=== PATIENT | female | born 1990 | race Caucasian/White ===

== ENCOUNTER 2020-12-30 00:28 | Emergency (ER) | payer MEDICAID, OTHER ==
[~2020-12-30] VITALS: Ht 165.1 cm; Wt 79.5 kg
--- NOTE | 2020-12-30 01:29 | PHYS DOC ---
Past Medical History Past Medical History: Other Additional Past Medical Histor: scoliosis Past Surgical History: No Surgical History Smoking Status: Current Every Day Smoker Alcohol Use: None Drug Use: None General Adult EDM: Chief Complaint: LOWER EXTREMITY SWELLING HPI: HPI: Patient is a 30 year old female who presents with left foot pain and redness. States symptoms have been present for a week and have progressively worsened. Rates pain as 3/10 currently. Pain worsens with touch or when weight bearing but improves with rest. No alleviating factors. Notes increased swelling and pain in the foot. Denies any injury but notes she had been scratching at a mosquito bite on the foot. Denies fevers/chills, abdominal pain, nausea/vomiting/diarrhea. Review of Systems: Review of Systems: Constitutional: Denies fever or chills Eyes: Denies redness or eye pain HENT: Denies nasal congestion or sore throat Respiratory: Denies cough or shortness of breath Cardiovascular: Denies chest pain or palpitations GI: Denies abdominal pain, nausea, or vomiting : Denies dysuria or hematuria Musculoskeletal: Reports left foot pain and swelling. Denies back pain or joint pain Integument: Left foot redness. Denies skin lesions Neurologic: Denies headache, focal weakness or sensory changes Complete systems were reviewed and found to be within normal limits, except as documented in this note. Heart Score: C/O Chest Pain: N/A Allergies: Allergies: Allergies Coded Allergies Type Severity Reaction Last Updated Verified No Known Drug Allergies 04/26/15 No Physical Exam: PE: Constitutional: Well developed, well nourished, no acute distress, non-toxic appearance HENT: Normocephalic, atraumatic Eyes: PERRL, EOMI, conjunctiva normal, no discharge Neck: Normal range of motion, no tenderness, supple Lungs & Thorax: No respiratory distress, equal chest rise and fall Abdomen: Soft, no tenderness Skin: Warm, dry, no erythema, no rash Back: No tenderness, no CVA tenderness Extremities: The dorsum of the left foot is erythematous, warm, and swollen. Bony tenderness noted along the dorsal and lateral aspects of the foot. ROM intact Neurologic: Alert and oriented X 3, normal motor function, normal sensory function, no focal deficits noted Psychologic: Affect normal, judgment normal Current Patient Data: Vital Signs: Vital Signs Date Time Temp Pulse Resp B/P (MAP) Pulse Ox O2 Delivery O2 Flow Rate FiO2 12/30/20 01:00 97.6 88 16 141/90 (112) 100 Room Air 97.6 EKG: EKG: [] Radiology/Procedures: Radiology/Procedures: Left foot x-rays 3 views HISTORY: Left foot pain and swelling. FINDINGS: Dorsal forefoot soft tissue edema and swelling. No fracture. No dislocation. No arthritic change. Small os trigonum posterior to the talus. IMPRESSION: No acute osseous injury. Dorsal forefoot soft tissue edema and swel ling. Electronically signed by: Ihsan Escamilla MD (12/30/2020 2:16 AM) [facility] Course & Med Decision Making: Course & Med Decision Making 30 year old female presents with H&P consistent with left foot cellulitis. Vital signs stable. Imaging negative for acute fracture Patient stable for discharge with outpatient follow-up with PCP. Discussed fi ndings and plan with patient, who acknowledges understanding and agreement. Tacos Disclaimer: Tacos Disclaimer: This electronic medical record was generated, in whole or in part, using a voice recognition dictation system. Departure Departure Impression: Primary Impression: Cellulitis of left foot Disposition: HOME / SELF CARE / HOMELESS Condition: STABLE Referrals: NO PCP (PCP) Patient Instructions: Cellulitis, [id number] Additional Instructions: Take antibiotics to completion. Take [id number] ibuprofen and or Tylenol for pain or discomfort. Scripts Clindamycin Hcl (CLINDAMYCIN HCL) 300 Mg Capsule 1 CAP PO TID for Infection for 7 Days, #21 CAP Prov: ANA PAULA RENEE DO 12/30/20 ANA PAULA RENEE DO Dec 30, 2020 01:29
[2020-12-30] MEDS ORDERED: CLINDAMYCIN HCL 150 MG CAPSULE. PO ONE (01:30)
[2020-12-30] MEDS ORDERED: CLIN300C9 PO (01:31)
--- NOTE | 2020-12-30 02:18 | RAD ---
Left foot x-rays 3 views HISTORY: Left foot pain and swelling. FINDINGS: Dorsal forefoot soft tissue edema and swelling. No fracture. No dislocation. No arthritic c hange. Small os trigonum posterior to the talus. IMPRESSION: No acute osseous injury. Dorsal forefoot soft tissue edema and swelling. Electronically signed by: Ihsan Escamilla MD (12/30/2020 2:16 AM) [facility]
[2020-12-30 02:22] VITALS: BP 124/79
== END 2020-12-30 02:24 | disposition home or self-care (01) ==
LOC: ER 00:28
DX: L03.116 Cellulitis of left lower limb (principal); F17.200 Nicotine dependence, unspecified, uncomplicated
CPT/HCPCS: 73630; 99283

== ENCOUNTER 2021-02-06 16:15 | Emergency (ER) | payer MEDICAID ==
[~2021-02-06] VITALS: Ht 167.6 cm; Wt 75.0 kg
[~2021-02-06 16:15] MED LIST: CLIN-94 PO
[2021-02-06] MEDS ORDERED: fentaNYL PF VIAL 100 MCG/2 ML VIAL IVP ONE (18:00)
[2021-02-06] MEDS ORDERED: IV NORMAL SALINE 1000ML BAG 1,000 ML IV SCH (18:00)
[2021-02-06] MEDS ORDERED: KETOROLAC 30 MG/ML VIAL. IVP ONE (18:00)
--- NOTE | 2021-02-06 18:06 | PHYS DOC ---
Past Medical History Past Medical History: Other Additional Past Medical Histor: scoliosis Past Surgical History: No Surgical History Smoking Status: Current Every Day Smoker Alcohol Use: None Drug Use: None General Adult EDM: Chief Complaint: FEVER HPI: HPI: Patient is a 30 year old female who presents with 3 days of bilateral flank pain, fever, chills, burning with urination. Patient has a history of UTI, smo saw and scoliosis. She does have the Mirena control and so her periods are irregular. Denies headache, cough, shortness of breath, chest pain, vision change, numbness or tingling, focal weakness, abnormal vaginal discharge, concern for STD, vomiting, diarrhea, constipation. She has not taking anything for fever or pain today. Review of Systems: Review of Systems: Constitutional: + fever or +chills. [] Eyes: Denies change in visual acuity. [] HENT: Denies nasal congestion or sore throat. [] Respiratory: Denies cough or shortness of breath. [] Cardiovascular: Denies chest pain or edema. [] GI: +lower abdominal pain, +nausea, denies vomiting, bloody stools or diarrhea. [] : Denies dysuria. [] Musculoskeletal: +bilateral back pain or denies joint pain. [] Integument: Denies rash. [] Neurologic: Denies headache, focal weakness or sensory changes. +dizziness[] Endocrine: Denies polyuria or polydipsia. [] Lymphatic: Denies swollen glands. [] Psychiatric: Denies depression or anxiety. [] Heart Score: C/O Chest Pain: No Current Medications: Current Medications Medications (Trade) Dose Ordered Sig/[facility] Start Time Stop Time Status Last Admin Dose Admin Fentanyl Citrate (Fentanyl 2ml Vial) 50 mcg 1X ONCE 02/06/21 18:00 02/06/21 18:01 UNV Ketorolac Tromethamine (Toradol 30mg Vial) 30 mg 1X ONCE 02/06/21 18:00 02/06/21 18:01 UNV Sodium Chloride 1,000 ml @ 1,000 mls/hr Q1H 02/06/21 18:00 02/06/21 18:59 UNV Allergies: Allergies: Allergies Coded Allergies Type Severity Reaction Last Updated Verified No Known Drug Allergies 04/26/15 No Physical Exam: PE: Constitutional: Well developed, well nourished, no acute distress, non-toxic appearance. [] HENT: Normocephalic, atraumatic, bilateral external ears normal, oropharynx moist, no oral exudates, nose normal. [] Eyes: PERRLA, EOMI, conjunctiva normal, no discharge. [] Neck: Normal range of motion, no tenderness, supple, no stridor. [] Cardiovascular:Heart rate regular rhythm, no murmur [] Lungs & Thorax: Bilateral breath sounds clear to auscultation [] Abdomen: Bowel sounds normal, soft, lower tenderness, no masses, no pulsatile masses. [] Skin: Warm, dry, no erythema, no rash. [] Back: No tenderness, bilateral CVA tenderness. [] Extremities: No tenderness, no cyanosis, no clubbing, ROM intact, no edema. [] Neurologic: Alert and oriented X 3, normal motor function, normal sensory function, no focal deficits noted. [] Psychologic: Affect normal, judgement normal, mood normal. [] Current Patient Data: Labs: Laboratory Tests Test 02/06/21 17:49 POC Urine HCG, Qualitative Hcg negative (Negative) EKG: EK and read by Dr Pham as Sinus tachycardia with no specific ST changes, no STEMI Radiology/Procedures: Radiology/Procedures: [] Impression: [facility] [address] [place], [place] [id number] IMAGING REPORT Signed PATIENT: MING JOHNSON ACCOUNT: [id number] : 1990 LOCATION: ER AGE: 30 SEX: F EXAM STATUS: REG ER ORD. PHYSICIAN: DANIEL RING APRN REASON: bilateral flank pain, burning with urination, fever PROCEDURE: CT ABDOMEN PELVIS WO CONTRAST Study: CT abdomen/pelvis without intravenous contrast Indication: Bilateral flank pain. Burning with urination. Fever. Comparison: 02/11/2008 Technique: Helical CT imaging performed of the abdomen and pelvis without the use of intravenous contrast. Sagittal and coronal reformats were obtained. One or more of the following individualized dose reduction techniques were utilized for this examination: 1. Automated exposure control 2. Adjustment of the mA and/or kV according to patient size 3. Use of iterative reconstruction technique. Findings: Inherently limited evaluation without intravenous contrast. Chest: Unremarkable visualized lungs and mediastinal contents. Liver: No focal abnormality. Parenchymal attenuation is within normal limits in relation to the spleen. Gallbladder/Biliary Tree: Nondilated gallbladder. No CT manifestations of acute cholecystitis. Within normal limits biliary tree. Pancreas: No peripancreatic inflammation. Spleen: Within normal limits for size. Adrenal Glands: No adrenal gland mass. Kidneys/Ureters/Bladder: No intrarenal stone or collecting system dilatation. Symmetric attenuation of the kidneys. No overt perinephric edema. Unremarkable bladder. Reproductive Organs: Intrauterine contraceptive device. Ovarian dermoid cyst on the right mostly with macroscopic fat measuring up to 3.5 x 3.2 x 3 cm. Colon: Edematous colonic wall thickening throughout the ascending and transverse segments and extending to involve the proximal to mid descending segment. Mild pericolonic inflammation best seen along the ascending colon. No pneumatosis or perforation. Appendix: Unremarkable. Small Bowel: Within normal limits course and caliber. Stomach: Unremarkable. Vasculature: Nonaneurysmal aorta. Lymph Nodes: Mildly prominent ileocolic lymph nodes most likely reactive. Peritoneum and Body Wall: Suspected tiny amount of free pelvic fluid, image 177 series 2. No pneumoperitoneum. Bones: No CT manifestations of sacroiliitis. Miscellaneous: None. Impression: 1. Long segment edematous colonic wall thickening from the ascending aspect through approximately the mid descending portion. Mild associated pericolonic inflammation. The appearance is most typical of a nonspecific infectious or inflammatory colitis. No bowel obstruction, pneumatosis or perforation. 2. Within normal limits kidneys and collecting system. 3. Ovarian dermoid cyst on the right measuring up to 3.5 cm. Intrauterine contraceptive device. Electronically signed by: CLARY BLACKWOOD MD (02/06/2021 6:56 PM) [facility] DICTATED and SIGNED BY: CLARY BLACKWOOD MD DATE: 02/06/21 [id number] Course & Med Decision Making: Course & Med Decision Making Pertinent Labs and Imaging studies reviewed. (See chart for details) See HPI. Alert and oriented x4. Ambulatory steady gait. Skin pink warm and diaphoretic. Cap refill less than 2 seconds. Tachycardic. Speaks in full clear sentences. Bilateral CVA tenderness. Lower abdominal tenderness but otherwise abdomen is soft and nontender. Elevation in temperature at 99.5. Patient is tolerating p.o. intake. Patient is positive for trichomonas, positive nitrites and her urine, colitis, amphetamines, benzo. Patient is given Rocephin 1 g, doxycycline IV, potassium 40meq p.o., Flagyl 2,000mg p.o., 2 L of normal saline, Zofran, Toradol, fentanyl. I offered the patient admission to the hospital in she states that she wants to go home and she does not want to stay in the hospital. She understands that she is very ill and she understands importance of taking her antibiotics. She understands that she could go home and worsen and this could result in disability and/or . [] Dragon Disclaimer: Dragon Disclaimer: This electronic medical record was generated, in whole or in part, using a voice recognition dictation system. Departure Departure Impression: Primary Impression: Urinary tract infection Qualified Codes: N10 - Acute pyelonephritis Additional Impressions: Trichomoniasis of bladder Amphetamine abuse Colitis Acute cervicitis Disposition: HOME / SELF CARE / HOMELESS Condition: STABLE Referrals: NO PCP (PCP) ANA PAULA WHITE MD Patient Instructions: Amphetamine Abuse, Colitis, Pelvic Inflammatory Disease, Trichomoniasis, Urinary Tract Infection Additional Instructions: Follow-up with primary care provider as soon as possible. Also follow-up with a live ammunition inspector to soon as possible. Take all your medication as prescribed and with food as it can make you nauseated and sick to her stomach. Drink plenty of water to help flush your bladder and kidneys. Is important that you finish all antibiotics. If anything worsens or you or vomiting cannot keep down your medications or fluid you need to return to the emergency room. Scripts Ondansetron (ONDANSETRON ODT) 4 Mg Tab.rapdis 1 TAB PO PRN Q6-8HRS, #16 TAB Prov: DANIEL RING SLIDE MAKER 02/06/21 Amoxicillin/Potassium Clav (AUGMENTIN 875-125 TABLET) 1 Each Tablet 1 TAB PO BID for 10 Days, #20 TAB 0 Refills Prov: DANIEL RING SLIDE MAKER 02/06/21 Doxycycline Hyclate (DOXYCYCLINE HYCLATE) 100 Mg Capsule 1 CAP PO BID, #20 CAP Prov: DANIEL RING APRN 02/06/21 DANIEL RING APRN Feb 06, 2021 18:06
[2021-02-06 18:24] LABS: BILIRUBIN,URINE SMALL (NEG); CLARITY,URINE CLOUDY; NITRITE,URINE POSITIVE (NEG); PROTEIN,URINE 100 mg/dL (NEG-TRACE); UROBILINOGEN,URINE 0.2 mg/dL (0.2 mg/dL)
[2021-02-06 18:31] LABS: AMPHETAMINE/METHAMPHETAMINE POS (NEG); BARBITURATES NEG (NEG); BENZODIAZEPINES POS (NEG); CANNABINOIDS NEG (NEG); COCAINE NEG (NEG); METHADONE NEG (NEG); OPIATES NEG (NEG); PHENCYCLIDINE NEG (NEG)
--- NOTE | 2021-02-06 18:31 | EKG ---
[facility] [address] [place] [address] Test Date: 2021-02-06 Test Time: 18:08:26 Pat Name: MING JOHNSON Department: Room: Gender: F Public Message Service Supervisor: : 1990 Requested By: DANIEL RING Order Number: [id number] Reading MD: Measurements Intervals Tyler Rate: 105 P: 31 IA: 134 QRS: 71 QRSD: 92 T: 19 QT: 312 QTc: 416 Interpretive Statements SINUS TACHYCARDIA QRS(T) CONTOUR ABNORMALITY CONSIDER ANTEROLATERAL MYOCARDIAL DAMAGE POSSIBLY ABNORMAL ECG RI6.01 No previous ECG available for comparison
[2021-02-06 18:37] LABS: COLOR,URINE DK YELLOW
[2021-02-06 18:38] LABS: BACTERIA,URINE MANY /HPF (0-FEW); WBC,URINE 20-40 /HPF (0-4)
[2021-02-06 18:42] LABS: TRICHOMONAS,URINE PRESENT
--- NOTE | 2021-02-06 18:59 | RAD ---
Study: CT abdomen/pelvis without intravenous contrast Indication: Bilateral flank pain. Burning with urination. Fever. Comparison: 02/11/2008 Technique: Helical CT imaging performed of the abdomen and pelvis without the use of intravenous cont rast. Sagittal and coronal reformats were obtained. One or more of the following individualized dose reduction techniques were utilized for this examinat ion: 1. Automated exposure control 2. Adjustment of the mA and/or kV according to patient size 3. Use of iterative reconstruction technique. Findings: Inherently limited evaluation without intravenous contrast. Chest: Unremarkable visualized lungs and mediastinal contents. Liver: No focal abnormality. Parenchymal attenuation is within normal limits in relation to the splee n. Gallbladder/Biliary Tree: Nondilated gallbladder. No CT manifestations of acute cholecystitis. Within normal limits biliary tree. Pancreas: No peripancreatic inflammation. Spleen: Within normal limits for size. Adrenal Glands: No adrenal gland mass. Kidneys/Ureters/Bladder: No intrarenal stone or collecting system dilatation. Symmetric attenuation o f the kidneys. No overt perinephric edema. Unremarkable bladder. Reproductive Organs: Intrauterine contraceptive device. Ovarian dermoid cyst on the right mostly with macroscopic fat measuring up to 3.5 x 3.2 x 3 cm. Colon: Edematous colonic wall thickening throughout the ascending and transverse segments and extendi ng to involve the proximal to mid descending segment. Mild pericolonic inflammation best seen along t he ascending colon. No pneumatosis or perforation. Appendix: Unremarkable. Small Bowel: Within normal limits course and caliber. Stomach: Unremarkable. Vasculature: Nonaneurysmal aorta. Lymph Nodes: Mildly prominent ileocolic lymph nodes most likely reactive. Peritoneum and Body Wall: Suspected tiny amount of free pelvic fluid, image 177 series 2. No pneumope ritoneum. Bones: No CT manifestations of sacroiliitis. Miscellaneous: None. Impression: 1. Long segment edematous colonic wall thickening from the ascending aspect through approximately th e mid descending portion. Mild associated pericolonic inflammation. The appearance is most typical of a nonspecific infectious or inflammatory colitis. No bowel obstruction, pneumatosis or perforation. 2. Within normal limits kidneys and collecting system. 3. Ovarian dermoid cyst on the right measuring up to 3.5 cm. Intrauterine contraceptive device. Electronically signed by: CLARY BLACKWOOD MD (02/06/2021 6:56 PM) [facility]
[2021-02-06] MEDS ORDERED: cefTRIAXone IV Push 1 GM VIAL. IVP ONE (19:00)
[2021-02-06] MEDS ORDERED: metroNIDAZOLE 500 MG TABLET PO ONE (19:00)
[2021-02-06] MEDS ORDERED: IV NORMAL SALINE 1000ML BAG 1,000 ML IV ONE (19:00)
[2021-02-06] MEDS ORDERED: ONDANSETRON PF 4 MG/2 ML VIAL. IVP ONE (19:00)
[2021-02-06] MEDS ORDERED: DOXYCYCLINE HYCLATE 100 MG in IV DEXTROSE 5% 100ML 100 ML IV ONE (19:00)
[2021-02-06 19:33] LABS: BASO # 0.1 x10^3/uL (0.0-0.2); BASO % 0 % (0-3); EOS % 0 % (0-3); HEMATOCRIT 41.3 % (36.0-47.0); HEMOGLOBIN 14.2 g/dL (12.0-15.5); LYMPH # 1.1 x10^3/uL (1.0-4.8); LYMPH % 7 % (24-48); MEAN CORPUSCULAR HEMOGLOBIN 32 pg (25-35); MEAN CORPUSCULAR HGB CONC 35 g/dL (31-37); MEAN CORPUSCULAR VOLUME 92 fL (79-100); MONO % 6 % (0-9); NEUT % 86 % (31-73); PLATELET COUNT 248 x10^3/uL (140-400); RED BLOOD COUNT 4.51 x10^6/uL (3.50-5.40); RED CELL DISTRIBUTION WIDTH 12.6 % (11.5-14.5); WHITE BLOOD COUNT 16.2 x10^3/uL (4.0-11.0)
[2021-02-06 19:50] LABS: CALCIUM 7.9 mg/dL (8.5-10.1); CREATININE 0.7 mg/dL (0.6-1.0); GFR 97.6
[2021-02-06 19:55] LABS: ALBUMIN 2.7 g/dL (3.4-5.0); ALBUMIN/GLOBULIN RATIO 0.8 (1.0-1.7); TOTAL BILIRUBIN 0.2 mg/dL (0.2-1.0); TOTAL PROTEIN 5.9 g/dL (6.4-8.2)
[2021-02-06] MEDS ORDERED: POTASSIUM CHLORIDE 20 MEQ TABLET.ER. PO ONE (20:00)
[2021-02-06] MEDS ORDERED: ONDA4TAB12 PO (20:34)
[2021-02-06] MEDS ORDERED: DOXY100C3 PO (20:34)
[2021-02-06] MEDS ORDERED: AMOX1TAB61 PO (20:34)
[2021-02-06 20:44] LABS: % BANDS 4 % (0-9); % BASOS 1 % (0-3); % LYMPHS 7 % (24-48); % MONOS 4 % (0-10); % SEGS 84 % (35-66); PLT ESTIMATE ADEQUATE (ADEQUATE); TOXIC GRANULATION SLIGHT; TOXIC VACUOLATION SLIGHT
[2021-02-06 22:00] VITALS: BP 96/60
== END 2021-02-06 22:30 | disposition home or self-care (01) ==
LOC: ER 16:15
DX: N10 Acute pyelonephritis (principal); A59.03 Trichomonal cystitis and urethritis; F15.10 Other stimulant abuse, uncomplicated; K52.9 Noninfective gastroenteritis and colitis, unspecified; N72 Inflammatory disease of cervix uteri; F17.200 Nicotine dependence, unspecified, uncomplicated
CPT/HCPCS: 36415; 74176; 80053; 80307; 81001; 81025; 83605; 83690; 83735; 84484; 85007; 85025; 87086; 87491; 87591; 93005; 96361; 96365; 96366; 96375; 99285; J0696; J1885; J3010; J3490; J7030; J7060

== ENCOUNTER 2021-04-22 04:50 | Emergency (ER) | payer MEDICAID ==
[~2021-04-22] VITALS: Ht 165.1 cm; Wt 72.2 kg
[~2021-04-22 04:50] MED LIST changes: +AMOX1TAB61 PO; +DOXY100C3 PO; +ONDA4TAB12 PO
[2021-04-22 05:00] VITALS: BP 160/94
[2021-04-22 05:23] LABS: BILIRUBIN,URINE NEGATIVE (NEG); CLARITY,URINE TURBID; COLOR,URINE YELLOW; NITRITE,URINE POSITIVE (NEG); PH,URINE 6.5 (<5.0-8.0); PROTEIN,URINE 100 mg/dL (NEG-TRACE); UROBILINOGEN,URINE 0.2 mg/dL (0.2 mg/dL)
[2021-04-22 05:27] LABS: BACTERIA,URINE MANY /HPF (0-FEW); WBC,URINE TNTC /HPF (0-4)
--- NOTE | 2021-04-22 05:32 | ED.ADGEN ---
Past Medical History Past Medical History: Other Additional Past Medical Histor: scoliosis Past Surgical History: No Surgical History Smoking Status: Current Every Day Smoker Alcohol Use: Rarely Drug Use: None General Adult EDM: Chief Complaint: PAIN ON URINATION HPI: HPI: Patient is a 31 year old female coming in for dysuria and urinary frequency for the past month, states has been getting worse. Patient that she has an appointment in 5 days but is unable to tolerate the dysuria. She denies any vaginal bleeding or discharge. Has an IUD. Patient states she is sexually active. Denies any hematuria, back or flank pain. Denies any fevers or systemic complaints. Review of Systems: Review of Systems: All other systems within normal limits except for as noted in the HPI Allergies: Allergies: Allergies Coded Allergies Type Severity Reaction Last Updated Verified No Known Drug Allergies 04/26/15 No Physical Exam: PE: Constitutional: Well developed, well nourished, no acute distress, non-toxic appearance. [] HENT: Normocephalic, atraumatic, bilateral external ears normal, nose normal. [] Eyes: PERRLA, conjunctiva normal, no discharge. [] Neck: No rigidity, supple, no stridor. [] Cardiovascular: Regular rate and rhythm, brisk cap refill [] Lungs & Thorax: Non labored symmetric respirations, no tachypnea or respiratory distress [] Abdomen: Soft, nondistended, suprapubic tender. Skin: Warm, dry, no erythema, no rash. [] Back: Unremarkable Extremities: No deformities, range of motion grossly intact, no lower extremity edema [] Neurologic: Alert and oriented X 3, no focal deficits noted. [] Psychologic: Affect normal, judgement normal, mood normal. [] Current Patient Data: Labs: Laboratory Tests Test 04/22/21 05:02 04/22/21 05:06 Urine Collection Type Unknown Urine Color Yellow Urine Clarity Turbid Urine pH 6.5 (<5.0-8.0) Urine Specific Partridge 1.025 (1.000-1.030) Urine Protein 100 mg/dL (NEG-TRACE) Urine Glucose (UA) Negative mg/dL (NEG) Urine Ketones (Stick) Negative mg/dL (NEG) Urine Blood Moderate (NEG) Urine Nitrite Positive (NEG) Urine Bilirubin Negative (NEG) Urine Urobilinogen Dipstick 0.2 mg/dL (0.2 mg/dL) Urine Leukocyte Esterase Large (NEG) Urine RBC 11-20 /HPF (0-2) Urine WBC Tntc /HPF (0-4) Urine Squamous Epithelial Cells Mod /LPF Urine Bacteria Many /HPF (0-FEW) Urine Mucus Mod /LPF POC Urine HCG, Qualitative Hcg negative (Negative) Vital Signs: Vital Signs Date Time Temp Pulse Resp B/P (MAP) Pulse Ox O2 Delivery O2 Flow Rate FiO2 04/22/21 05:00 98.6 113 20 160/94 (116) 100 Room Air 98.6 EKG: EKG: [] Heart Score: C/O Chest Pain: No Risk Factors: Risk Factors: DM, Current or recent (<one month) smoker, HTN, HLP, family history of CAD, obesity. Risk Scores: Score 0 - 3: 2.5% MACE over next 6 weeks - Discharge Home Score 4 - 6: 20.3% MACE over next 6 weeks - Admit for Clinical Observation Score 7 - 10: 72.7% MACE over next 6 weeks - Early Invasive Strategies Radiology/Procedures: Radiology/Procedures: [] Course & Med Decision Making: Course & Med Decision Making Patient declines any work-up for STIs, was treated for trichomonas about 2 mon ths ago. Tacos Disclaimer: Tacos Disclaimer: This electronic medical record was generated, in whole or in part, using a voice recognition dictation system. Departure Departure Impression: Primary Impression: Urinary tract infection Disposition: HOME / SELF CARE / HOMELESS Condition: STABLE Referrals: NO PCP (PCP) Patient Instructions: Urinary Tract Infection Scripts Nitrofurantoin Monohyd/M-Cryst (MACROBID 100 MG CAPSULE) 100 Mg Capsule 1 CAP PO BID for 7 Days, #14 CAP 0 Refills Prov: MING BABIN MD 04/22/21 MING BABIN MD Apr 22, 2021 05:32
[2021-04-22] MEDS ORDERED: NITR100C62 PO (05:34)
== END 2021-04-22 05:40 | disposition home or self-care (01) ==
LOC: ER 04:50
DX: N39.0 Urinary tract infection, site not specified (principal); F17.200 Nicotine dependence, unspecified, uncomplicated
CPT/HCPCS: 81001; 81025; 87077; 87086; 87186; 99283